=== PATIENT | female | born 1990 | race Hispanic/Latino ===

== ENCOUNTER → 2022-06-18 | Day surgery (SDC) | payer BC ==
[~2022-06-18] MED LIST: Betamet Acet/Betamet Na Ph 30 MG/5 ML VIAL IM SCH
== END ==
LOC: CSHSDC 14:34
PROVIDERS: ATTEND Obstetrics & Gynecology
DX: Z29.8 Encounter for other specified prophylactic measures (principal)
CPT/HCPCS: J0702

== ENCOUNTER 2022-06-19 15:27 | Day surgery (SDC) | payer BC ==
[2022-06-19] MEDS ORDERED: Betamet Acet/Betamet Na Ph 30 MG/5 ML VIAL IM SCH (16:00)
== END 2022-06-19 16:40 | disposition home or self-care (01) ==
LOC: CSHSDC 15:27
PROVIDERS: ATTEND Obstetrics & Gynecology
DX: Z29.8 Encounter for other specified prophylactic measures (principal)
CPT/HCPCS: J0702

== ENCOUNTER 2022-06-24 10:58 | Inpatient (IN) | payer BC ==
[2022-06-24] MEDS ORDERED: Promethazine HCl 25 MG/ML VIAL IM PRN (12:34)
[2022-06-24] MEDS ORDERED: Ondansetron PF 4 MG/2 ML Vial IVP PRN (12:34)
[2022-06-24] MEDS ORDERED: Labetalol HCl 200 MG TAB PO SCH (13:00)
[2022-06-24 13:11] VITALS: BMI 43.9
[2022-06-24 13:19] LABS: Hemoglobin 12.2 g/dL (12.0-15.5); Mean Corpuscular HGB CONC 35.1 g/dL (32.0-36.0); Mean Corpuscular Volume 85.5 fl (81.6-98.3); Mean Platelet Volume 9.9 fl (7.4-10.4); Platelet Count 324 10x3/uL (150-450); RBC Distribution Width 13.4 % (11.5-14.5); Red Blood Cell (RBC) Count 4.07 10x6/uL (3.90-5.03); White Blood Cell (WBC) Count 14.2 10x3/uL (3.5-10.5)
[2022-06-24 13:41] LABS: ALT (SGPT) 23 U/L (8-55); AST (SGOT) 26 U/L (5-34); Albumin 3.5 g/dL (3.5-5.0); Alkaline Phosphatase 76 U/L (40-110); Anion Gap 14 mmol/L (10-20); BUN (Urea Nitrogen) 17 mg/dL (7.0-18.7); Bilirubin, Total 0.4 mg/dL (0.2-1.2); Calc. Creatinine Clearance 215 mL/min (70-130); Calcium 9.5 mg/dL (7.8-10.44); Carbon Dioxide 25 mmol/L (22-29); Chloride 106 mmol/L (98-107); Estimated GFR 116; Globulin 3.3 g/dL (2.4-3.5); Glucose 82 mg/dL (70-105); Potassium 3.6 mmol/L (3.5-5.1); Protein, Total 6.8 g/dL (6.0-8.3); Sodium 141 mmol/L (136-145)
[2022-06-24 13:58] LABS: Syphilis Antibody Nonreactive (Nonreactive); Syphilis Antibody Index 0.04 S/CO (<1.00 Non-Reactive)
[2022-06-24 13:59] LABS: HBSAg Index 0.15 S/CO (0-0.99); Hep B Surf Ag Non-Reactive S/CO (NonReactive)
[2022-06-24] MEDS ORDERED: NIFEdipine XL 60 MG TAB PO SCH (19:00)
[2022-06-24] MEDS: Labetalol HCl 200 MG TAB PO SCH (19:06)
[2022-06-24] MEDS ORDERED: Famotidine/PF 20 mg/2ml Vial SLOW IVP PRN (20:11)
[2022-06-24] MEDS ORDERED: Bicitra 30 ML UDCUP PO PRN (20:11)
[2022-06-24] MEDS ORDERED: CEFAZOLIN 2 GM in Sodium Chloride 0.9% 100 ML IVPB SCH (20:15)
[2022-06-24 21:49] LABS: Creatinine, Urine 85.49 mg/dL (47-110)
[2022-06-24 21:52] LABS: SARS-CoV-2 NAA Rapid Test Not Detected (NotDetected)
[2022-06-24] MEDS: hydrALAZINE 20 MG/ML VIAL SLOW IVP PRN (23:45)
[2022-06-25] MEDS ORDERED: Magnesium Sulfate 20 gm/500 ml 20 GM/500 ML BAG ONE (00:44)
[2022-06-25] MEDS: Magnesium Sulfate 20 gm/500 ml 20 GM/500 ML BAG IVPB SCH ×2 (00:55→10:18)
[2022-06-25] MEDS ORDERED: Lorazepam 2 MG/ML VIAL SLOW IVP PRN (01:15)
[2022-06-25] MEDS ORDERED: Calcium Gluc 4.6 MEQ/10 ML (100 MG/ML) SLOW IVP PRN (01:15)
[2022-06-25] MEDS ORDERED: hydrALAZINE 20 MG/ML VIAL SLOW IVP PRN ×2 (01:15)
[2022-06-25] MEDS ORDERED: Magnesium Sulfate 20 gm/500 ml 4 GM/100 ML BAG IVPB SCH (01:15)
[2022-06-25] MEDS: Labetalol HCl 100 MG/20 ML VIAL SLOW IVP PRN ×4 (02:01→11:24)
[2022-06-25] MEDS: NIFEdipine XL 60 MG TAB PO SCH ×2 (08:23→19:20)
[2022-06-25] MEDS: Labetalol HCl 200 MG TAB PO SCH ×3 (08:24→19:19)
[2022-06-25] MEDS: hydrALAZINE 20 MG/ML VIAL SLOW IVP PRN ×3 (08:26→19:43)
[2022-06-25] MEDS: Lactated Ringer's 1,000 ML IV SCH ×3 (10:19→20:48)
[2022-06-25] MEDS ORDERED: Naloxone HCl 0.4 mg/ml Vial IV PRN (11:40)
[2022-06-25] MEDS ORDERED: Naloxone HCl 0.4 mg/ml Vial IVP PRN ×2 (11:40)
[2022-06-25] MEDS ORDERED: HYDROmorphone 2 MG/ML VIAL SLOW IVP PRN (11:40)
[2022-06-25] MEDS ORDERED: diphenhydrAMINE 50 MG/ML VIAL IVP PRN (11:40)
[2022-06-25] MEDS ORDERED: Promethazine HCl 25 MG SUPP PR PRN (11:40)
[2022-06-25] MEDS ORDERED: Fentanyl 100 MCG/2 ML VIAL SLOW IVP PRN (11:40)
[2022-06-25] MEDS ORDERED: Ondansetron HCl/PF 4 MG/2 ML Vial IVP PRN (11:40)
[2022-06-25] MEDS ORDERED: Moisturizing Cream (Eucerin) 113 GM JAR TOP PRN (11:40)
[2022-06-25] MEDS ORDERED: Ketorolac Tromethamine 30 MG/ML VIAL IVP PRN (11:40)
[2022-06-25] MEDS ORDERED: Ondansetron PF 4 MG/2 ML Vial IVP PRN (11:40)
[2022-06-25] MEDS ORDERED: Meperidine HCl/PF 25 MG/ML VIAL SLOW IVP PRN (11:40)
[2022-06-25] MEDS ORDERED: Promethazine HCl 25 MG/ML VIAL IM PRN (11:40)
[2022-06-25] MEDS ORDERED: Communication Order-Pharmacy FS SCH (11:45)
[2022-06-25] MEDS ORDERED: Ketorolac Tromethamine 30 MG/ML VIAL IVP SCH (11:45)
[2022-06-25] MEDS ORDERED: Morphine PF 10 MG/10 ML VIAL ONE (11:54)
[2022-06-25] MEDS ORDERED: Fentanyl 100 MCG/2 ML VIAL ONE (11:54)
[2022-06-25] MEDS ORDERED: CEFAZOLIN 2 GM VIAL ONE (12:04)
[2022-06-25] MEDS ORDERED: ePHEDrine Sulfate 50 MG/10 ML VIAL ONE (13:07)
[2022-06-25] MEDS ORDERED: Oxytocin 10 UNITS/ML VIAL ONE ×2 (13:07→13:12)
[2022-06-25] MEDS ORDERED: Dexamethasone 4 mg/ml Vial ONE (13:07)
[2022-06-25] MEDS ORDERED: Phenylephrine 10 MG/ML VIAL ONE (13:07)
[2022-06-25] MEDS ORDERED: Ondansetron PF 4 MG/2 ML Vial ONE (13:07)
[2022-06-25 13:32] LABS: pH (Cord, venous) 7.363 (7.250-7.350)
[2022-06-25] MEDS ORDERED: Misoprostol 200 MCG TAB PR PRN (13:45)
[2022-06-25] MEDS ORDERED: NS w/ Oxytocin 30 units 500 ML IV SCH (13:45)
[2022-06-25] MEDS ORDERED: diphenhydrAMINE 25 MG CAP PO PRN (13:45)
[2022-06-25] MEDS ORDERED: Simethicone Chewable 80 MG TAB PO PRN (13:45)
[2022-06-25] MEDS ORDERED: hydrALAZINE 20 MG/ML VIAL SLOW IVP SCH ×2 (13:45→20:15)
[2022-06-25] MEDS ORDERED: Acetaminophen 325 MG TAB PO PRN (13:45)
[2022-06-25] MEDS ORDERED: Boostrix 0.5 ML (Tdap) VIAL (>/=7 yrs of age) IM ONE (13:45)
[2022-06-25] MEDS ORDERED: Lanolin Ointment 7 GM TUBE TOP PRN (13:45)
[2022-06-25] MEDS: Polyethylene Glycol 3350 17 GM Packet PO SCH (20:48)
[2022-06-25] MEDS: Docusate 100 MG CAP PO SCH (20:48)
[2022-06-25] MEDS: Metoprolol Tartrate 5 MG/5 ML VIAL IVP PRN (21:16)
[2022-06-26] MEDS: Lactated Ringer's 1,000 ML IV SCH ×3 (00:12→22:33)
[2022-06-26 03:29] LABS: Hemoglobin 10.5 g/dL (12.0-15.5); Mean Corpuscular HGB CONC 32.9 g/dL (32.0-36.0); Mean Corpuscular Hemoglobin 29.2 pg (27.0-33.0); Mean Corpuscular Volume 88.9 fl (81.6-98.3); Mean Platelet Volume 9.3 fl (7.4-10.4); Platelet Count 271 10x3/uL (150-450); RBC Distribution Width 14.1 % (11.5-14.5); Red Blood Cell (RBC) Count 3.59 10x6/uL (3.90-5.03); White Blood Cell (WBC) Count 13.9 10x3/uL (3.5-10.5)
[2022-06-26 03:48] LABS: Magnesium 4.4 mg/dL (1.6-2.6)
[2022-06-26 06:32] LABS: Anion Gap 13 mmol/L (10-20); BUN (Urea Nitrogen) 7 mg/dL (7.0-18.7); Calc. Creatinine Clearance 239 mL/min (70-130); Carbon Dioxide 24 mmol/L (22-29); Chloride 102 mmol/L (98-107); Estimated GFR 120; Glucose 97 mg/dL (70-105); Sodium 136 mmol/L (136-145)
[2022-06-26] MEDS: Metoprolol Tartrate 5 MG/5 ML VIAL IVP PRN (06:32)
[2022-06-26] MEDS: Polyethylene Glycol 3350 17 GM Packet PO SCH ×2 (08:35→20:30)
[2022-06-26] MEDS: Docusate 100 MG CAP PO SCH ×2 (08:35→20:30)
[2022-06-26] MEDS ORDERED: Potassium Chloride 20 MEQ TAB PO SCH ×2 (08:45→13:00)
[2022-06-26] MEDS: NIFEdipine XL 60 MG TAB PO SCH ×2 (09:07→20:30)
[2022-06-26] MEDS: Labetalol HCl 200 MG TAB PO SCH ×3 (09:24→20:30)
[2022-06-26] MEDS: Prenatal Vitamin 1 TAB PO SCH (09:25)
[2022-06-26] MEDS: HYDROcodone/Acetaminophen 5/325 mg Tablet PO PRN (11:41)
[2022-06-26] MEDS: Ibuprofen 800 MG TAB PO SCH ×2 (15:50→22:48)
[2022-06-27] MEDS: Lactated Ringer's 1,000 ML IV SCH ×3 (05:35→21:37)
[2022-06-27] MEDS: Ibuprofen 800 MG TAB PO SCH ×3 (05:36→21:48)
[2022-06-27] MEDS: HYDROcodone/Acetaminophen 5/325 mg Tablet PO PRN ×3 (07:43→17:01)
[2022-06-27] MEDS: Prenatal Vitamin 1 TAB PO SCH (07:43)
[2022-06-27] MEDS: Docusate 100 MG CAP PO SCH ×2 (07:44→21:48)
[2022-06-27] MEDS: NIFEdipine XL 60 MG TAB PO SCH ×2 (08:13→21:49)
[2022-06-27] MEDS: Labetalol HCl 200 MG TAB PO SCH ×3 (08:13→21:49)
[2022-06-27] MEDS: Polyethylene Glycol 3350 17 GM Packet PO SCH ×2 (10:17→21:48)
[2022-06-28] MEDS: HYDROcodone/Acetaminophen 5/325 mg Tablet PO PRN (01:42)
[2022-06-28] MEDS: Ibuprofen 800 MG TAB PO SCH (05:18)
[2022-06-28] MEDS: Lactated Ringer's 1,000 ML IV SCH (06:26)
[2022-06-28 07:46] VITALS: TEMP 98.3
[2022-06-28] MEDS: Docusate 100 MG CAP PO SCH (08:10)
[2022-06-28] MEDS: NIFEdipine XL 60 MG TAB PO SCH (08:11)
[2022-06-28] MEDS: Labetalol HCl 200 MG TAB PO SCH (08:11)
[2022-06-28] MEDS: Prenatal Vitamin 1 TAB PO SCH (08:11)
[2022-06-28] MEDS: Polyethylene Glycol 3350 17 GM Packet PO SCH (08:11)
[2022-06-28 09:38] VITALS: BP 141/58
== END 2022-06-28 09:55 | disposition home or self-care (01) | DRG 787 ==
LOC: CSHLD/OP 10:58 → INTOOBSV 19:22 → CSHLD 19:22 → OBSVTOIN 19:23 → CSHIMCU 06-25 21:46 → CSHANTE 06-26 21:29
PROVIDERS: ADMIT Obstetrics & Gynecology; ATTEND Obstetrics & Gynecology
PROC: 10D00Z1 Extraction of Products of Conception, Low, Open Approach (ICD-10-PCS; principal; 2022-06-25)
DX: O10.92 Unspecified pre-existing hypertension complicating childbirth (principal); O41.03X0 Oligohydramnios, third trimester, not applicable or unspecified; O99.43 Diseases of the circulatory system complicating the puerperium; Z3A.34 34 weeks gestation of pregnancy; Z37.0 Single live birth; Z20.822 Contact with and (suspected) exposure to COVID-19; Z79.899 Other long term (current) drug therapy; E66.01 Morbid (severe) obesity due to excess calories; O99.214 Obesity complicating childbirth; E87.6 Hypokalemia; O99.285 Endocrine, nutritional and metabolic diseases complicating the puerperium; O11.4 Pre-existing hypertension with pre-eclampsia, complicating childbirth; I48.0 Paroxysmal atrial fibrillation
CPT/HCPCS: 36415; 51702; 80048; 80053; 82570; 82805; 83735; 84156; 85027; 86780; 86850; 86900; 86901; 87340; 93005; 93010; 94760; J0360; J1100; J1200; J1650; J1885; J2274; J2370; J2405; J2550; J2590; J3010; J3475; J7120; U0002

== ENCOUNTER 2023-08-21 15:11 | Emergency (ER) | payer BC ==
[2023-08-21 15:46] LABS: #Basophils 0.1 10x3/uL (0.0-0.2); #Eosinphils 0.2 10x3/uL (0.0-0.5); #Monocytes 0.6 10x3/uL (0.0-1.1); #Neutrophils 5.4 10x3/uL (1.5-8.4); %Basophils 0.6 % (0.0-2.0); %Eosinophils 2.2 % (0.0-6.0); %Lymphocytes 34.6 % (18.0-47.0); %Monocytes 6.6 % (0.0-10.0); %Neutrophils 55.8 % (40.0-75.0); Hematocrit 38.1 % (34.9-44.5); Hemoglobin 12.8 g/dL (12.0-15.5); Mean Corpuscular HGB CONC 33.6 g/dL (32.0-36.0); Mean Corpuscular Hemoglobin 29.6 pg (27.0-33.0); Mean Platelet Volume 9.5 fl (7.4-10.4); Platelet Count 242 10x3/uL (150-450); RBC Distribution Width 13.8 % (11.5-14.5); Red Blood Cell (RBC) Count 4.33 10x6/uL (3.90-5.03); White Blood Cell (WBC) Count 9.7 10x3/uL (3.5-10.5)
[2023-08-21 16:16] LABS: ALT (SGPT) 69 U/L (8-55); AST (SGOT) 93 U/L (5-34); Albumin 4.2 g/dL (3.5-5.0); Alkaline Phosphatase 85 U/L (40-110); Anion Gap 13 mmol/L (10-20); BUN (Urea Nitrogen) 16 mg/dL (7.0-18.7); Bilirubin, Total 0.6 mg/dL (0.2-1.2); Calc. Creatinine Clearance 0 mL/min (70-130); Calcium 10.1 mg/dL (7.8-10.44); Carbon Dioxide 23 mmol/L (22-29); Chloride 105 mmol/L (98-107); Estimated GFR 84; Globulin 3.1 g/dL (2.4-3.5); Glucose 97 mg/dL (70-105); Lipase 15 U/L (8-78); Potassium 3.8 mmol/L (3.5-5.1); Protein, Total 7.3 g/dL (6.0-8.3); Sodium 137 mmol/L (136-145); Troponin I Less than 0.010 ng/mL (< 0.028)
== END 2023-08-21 17:03 | disposition home or self-care (01) ==
LOC: CSHERS 15:11
DX: R07.9 Chest pain, unspecified (principal); I10 Essential (primary) hypertension
CPT/HCPCS: 71045; 80053; 83690; 84484; 85025; 93005